=== PATIENT | male | born 1945 | race Caucasian/White ===

== ENCOUNTER 2018-09-17 11:31 | Emergency (ER) | payer MEDICAID ==
[~2018-09-17] VITALS: Ht 165.1 cm; Wt 59.0 kg
[~2018-09-17 11:31] MED LIST: AMIO100T4 PO; ATOR20TA65 PO; DILT240T12 PO; FLUT9.9S BOTHNSTRLS; MY80 PO; PANT40TA4 MT; TERA1CAP7 PO; [UNRECOGNIZED DRUG - CODE] PO
[2018-09-17 15:03] LABS: CHLORIDE 97 mEq/L (98-107)
[2018-09-17 15:05] LABS: INR 1.1; PARTIAL THROMBOPLASTIN TIME 31.3 sec (23.4-31.0); PROTHROMBIN TIME 10.7 sec (9.1-11.1)
[2018-09-17 15:11] LABS: BASOPHILS % 0.8 % (0.0-2.0); EOSINOPHILS % 1.5 % (0.0-5.0); HEMATOCRIT. 35.6 % (42.0-52.0); HEMOGLOBIN. 12.1 g/dL (14.0-18.0); LYMPHOCYTES % 24.2 % (20.0-50.0); MEAN CORPUSCULAR HEMOGLOBIN 26.6 pg (28.0-32.0); MEAN CORPUSCULAR VOLUME 78.3 fL (80.0-94.0); MEAN PLATELET VOLUME 7.2 fl (7.4-10.4); MONOCYTES % 9.4 % (2.0-8.0); NEUTROPHILS % 64.1 % (40.0-76.0); PLATELET 211 x1000/uL (130-400); RED BLOOD CELL COUNT 4.55 mill/uL (4.7-6.1); RED CELL DISTRIBUTION WIDTH 21.3 % (11.6-14.6)
[2018-09-17] MEDS ORDERED: CEFTRIAXONE 1 G PREMIX 50 ML IV ONE (16:15)
[2018-09-17] MEDS ORDERED: LIDOCAINE 1%/EPI 1:100,000 10 ML VIAL IJ ONE (16:15)
[2018-09-17] MEDS ORDERED: LIDOCAINE HCL/EPINEPHRINE 1%-EPI 1:100,000 20 ML VIAL IJ SCH (16:15)
[2018-09-17] MEDS ORDERED: BACITRACIN ZINC OINT UDPKT TOP ONE (16:15)
[2018-09-17 17:32] VITALS: BP 115/70
== END 2018-09-17 17:36 | disposition home or self-care (01) ==
LOC: ER 14:31
DX: L03.311 Cellulitis of abdominal wall (principal); D64.9 Anemia, unspecified; I48.91 Unspecified atrial fibrillation; K21.9 Gastro-esophageal reflux disease without esophagitis; I10 Essential (primary) hypertension; Z98.890 Other specified postprocedural states; Z79.899 Other long term (current) drug therapy
CPT/HCPCS: 36415; 71045; 80053; 83605; 83690; 85025; 85610; 85730; 87040; 87086; 93005; 96365; 99284; J0696; J3490

== ENCOUNTER 2018-11-03 05:11 | Inpatient (IN) | payer MEDICAID ==
[~2018-11-03] VITALS: Ht 165.1 cm; Wt 58.1 kg
[~2018-11-03 05:11] MED LIST changes: +LACTATED RINGERS 1,000 ML IV SCH
[2018-11-03] MEDS ORDERED: LACTATED RINGERS 1,000 ML IV SCH (06:50)
[2018-11-03] MEDS ORDERED: APIX5TAB PO (07:19)
[2018-11-03] MEDS ORDERED: IRBE150T27 PO (07:19)
[2018-11-03] MEDS ORDERED: BUPIVACAINE HCL/PF 0.5% (5MG/ML) 10ML ONE ×2 (07:22→07:40)
[2018-11-03] MEDS ORDERED: NORMAL SALINE 0.9% 10 ML SYR ONE (07:22)
[2018-11-03] MEDS ORDERED: LIDOCAINE HCL 1% 20ML VIAL (Pyxis) INJ ONE ×2 (07:22→07:40)
[2018-11-03] MEDS ORDERED: BACITRACIN 50,000 UNITS/VIAL ONE (07:23)
[2018-11-03] MEDS ORDERED: IOPAMIDOL 20 ML VIAL IT ONE (07:27)
[2018-11-03] MEDS ORDERED: PROPOFOL 200MG/20ML VIAL IV ONE (07:46)
[2018-11-03] MEDS ORDERED: NEOSTIGMINE METHYLSULFATE 1MG/ML 10 ML VIAL ONE (07:46)
[2018-11-03] MEDS ORDERED: ROCURONIUM BROMIDE 10MG/ML VIAL 5ML IV ONE (07:46)
[2018-11-03] MEDS ORDERED: GLYCOPYRROLATE 0.2 MG/ML 2ML VIAL ONE (07:46)
[2018-11-03] MEDS ORDERED: SODIUM CHLORIDE 0.9% 10ML VIAL ONE (07:46)
[2018-11-03] MEDS ORDERED: MIDAZOLAM HCL 2 MG/2 ML VIAL ONE (07:46)
[2018-11-03] MEDS ORDERED: LIDOCAINE HCL/PF 1% 10 MG/ML 5ML VIAL ONE (07:46)
[2018-11-03] MEDS ORDERED: FENTANYL CITRATE/PF 50MCG/ML 2ML VIAL ONE (07:46)
[2018-11-03] MEDS ORDERED: ONDANSETRON HCL 4MG/2ML INJ ONE (07:47)
[2018-11-03] MEDS ORDERED: PHENYLEPHRINE HCL 10 MG/ML 1ML (IV VIAL) IV ONE (07:47)
[2018-11-03] MEDS ORDERED: METOCLOPRAMIDE HCL 10MG/2ML VIAL ONE (07:47)
[2018-11-03] MEDS ORDERED: SUCCINYLCHOLINE CHLORIDE 200MG/10ML IV ONE (07:47)
[2018-11-03] MEDS ORDERED: EPHEDRINE SULFATE 50MG/ML VIAL ONE (07:47)
[2018-11-03] MEDS ORDERED: SKIN ADHESIVE 0.7 GM EA TOP ONE (08:46)
[2018-11-03] MEDS ORDERED: MORPHINE SULFATE 4 MG/ML CPJ (NOT FOR IM USE) IV PRN (09:15)
[2018-11-03] MEDS ORDERED: ONDANSETRON HCL 4MG/2ML INJ IV PRN ×2 (09:15→10:00)
[2018-11-03] MEDS ORDERED: HYDROMORPHONE HCL/PF 2MG/ML CPJ IV PRN ×2 (09:15→10:00)
[2018-11-03] MEDS ORDERED: MEPERIDINE HCL/PF 25MG/ML CPJ IV PRN (09:15)
[2018-11-03] MEDS ORDERED: SODIUM CHLORIDE 0.45% 1,000 ML IV SCH (10:00)
[2018-11-03 12:00] VITALS: BP 114/55
[2018-11-03 13:00] VITALS: BP 114/55
[2018-11-03] MEDS ORDERED: SODIUM CHLORIDE 0.9% 1,000 ML IV SCH (13:30)
[2018-11-03] MEDS: LOSARTAN POTASSIUM 50 MG TABLET PO SCH (14:38)
[2018-11-03] MEDS: KETOROLAC 30MG/ML VIAL IV SCH ×2 (14:38→20:58)
[2018-11-03] MEDS: PANTOPRAZOLE 40MG DR TABLET PO SCH (14:39)
[2018-11-03 16:27] VITALS: BP 129/69
[2018-11-03] MEDS: TERAZOSIN HCL 1MG CAPSULE PO SCH (17:41)
[2018-11-03 20:00] VITALS: BP 130/60
[2018-11-03] MEDS ORDERED: ATORVASTATIN CALCIUM 20MG TABLET PO SCH (21:00)
[2018-11-03] MEDS: CEFOXITIN SODIUM 2 G in DEXT 5% WATER 100 ML IV SCH (23:15)
[2018-11-04] VITALS: BP 103/49
[2018-11-04 04:00] VITALS: BP 126/59
[2018-11-04] MEDS: KETOROLAC 30MG/ML VIAL IV SCH ×2 (04:13→09:49)
[2018-11-04] MEDS: CEFOXITIN SODIUM 2 G in DEXT 5% WATER 100 ML IV SCH (06:19)
[2018-11-04] MEDS: PANTOPRAZOLE 40MG DR TABLET PO SCH (06:19)
[2018-11-04 08:00] VITALS: BP 128/58
[2018-11-04] MEDS ORDERED: MEDICATION NOT ON FORMULARY EA (Diltiazem HCl (Diltiazem ER) 1 TAB) PO SCH (09:00)
[2018-11-04] MEDS ORDERED: MEDICATION NOT ON FORMULARY EA (Pantoprazole Sodium 1 TAB) MT SCH (09:00)
[2018-11-04] MEDS ORDERED: IRBESARTAN 150 MG PO SCH (09:00)
[2018-11-04] MEDS: TERAZOSIN HCL 1MG CAPSULE PO SCH (09:49)
[2018-11-04] MEDS: LOSARTAN POTASSIUM 50 MG TABLET PO SCH (09:49)
[2018-11-04 12:00] VITALS: BP 129/54
[2018-11-04 12:51] VITALS: BP 132/55
[2018-11-04] MEDS ORDERED: DILTIAZEM HCL 120MG CAPSULE CD 24HR PO SCH (14:00)
== END 2018-11-04 12:45 | disposition home or self-care (01) | DRG 263 ==
LOC: OR 05:11 → 5WST 05:12
PROVIDERS: ADMIT Specialist; ATTEND Specialist
PROC: 0FT44ZZ Resection of Gallbladder, Percutaneous Endoscopic Approach (ICD-10-PCS; principal; 2018-11-03)
PROC: 0WQF0ZZ Repair Abdominal Wall, Open Approach (ICD-10-PCS; 2018-11-03)
PROC: 0FP4X0Z Removal of Drainage Device from Gallbladder, External Approach (ICD-10-PCS; 2018-11-03)
DX: K80.00 Calculus of gallbladder with acute cholecystitis without obstruction (principal); K85.10 Biliary acute pancreatitis without necrosis or infection; I48.0 Paroxysmal atrial fibrillation; K42.0 Umbilical hernia with obstruction, without gangrene; E78.5 Hyperlipidemia, unspecified; K74.60 Unspecified cirrhosis of liver; I10 Essential (primary) hypertension; Z79.01 Long term (current) use of anticoagulants
CPT/HCPCS: 82962; 88304; 93005; J0330; J0694; J1170; J1885; J2250; J2370; J2405; J2704; J2710; J2765; J3010; J3490; J7040; J7060; Q9966; A4315